=== PATIENT | male | born 1980 | race Caucasian/White ===

== ENCOUNTER 2019-02-14 16:41 | Emergency (ER) | payer OTHER ==
[~2019-02-14] VITALS: Ht 180.3 cm; Wt 99.8 kg
[~2019-02-14 16:41] MED LIST: BACTRIM DS TAB1 EACH PO; DICLOFENAC SODI75 MG PO; PERCOCET 7.5-31 EACH PO; VALACYCLOVIR500 MG PO; ZOFRAN4 MG PO
[2019-02-14] MEDS ORDERED: DOXYCYCLINE HY100 MG PO (17:39)
[2019-02-15] MEDS ORDERED: ONDANSETRON ODT8 MG PO (12:08)
== END 2019-02-14 18:11 | disposition home or self-care (01) ==
LOC: ED 16:41
PROC: 0H9HXZZ Drainage of Right Upper Leg Skin, External Approach (ICD-10-PCS; principal; 2019-02-14)
DX: L02.415 Cutaneous abscess of right lower limb (principal); B95.8 Unspecified staphylococcus as the cause of diseases classified elsewhere; F17.200 Nicotine dependence, unspecified, uncomplicated; Z88.5 Allergy status to narcotic agent; Z88.6 Allergy status to analgesic agent; Z91.018 Allergy to other foods; Z79.899 Other long term (current) drug therapy
CPT/HCPCS: 10060; 99282-25

== ENCOUNTER 2019-02-15 09:46 | Emergency (ER) | payer OTHER ==
[~2019-02-15] VITALS: Ht 180.3 cm; Wt 99.8 kg
[~2019-02-15 09:46] MED LIST changes: +DOXYCYCLINE HY100 MG PO
--- OUTSIDE RECORDS SUMMARY | 2019-02-15 09:48 | XMS ---
PreManage Notification: JULIETA JAEGER Security Engineering Writer Events No recent Security Events currently on file CRITERIA MET - [facility] - 2 Visits in 30 Days CARE PROVIDERS Jose C [place]/Center: Federally Qualified 12/27/2017-Current [facility] ([facility]) CENTER OF PHONE: [phone] LUZ MARIA STONER Nurse Practitioner Current PHONE: Unknown Teofilo Guerra Solar Installation Supervisor/Road Freight Conductor Current [facility] Regional Care Team PHONE: [phone] [facility] Primary Care 12/27/2017-10/01/2015 [facility] PHONE: [phone] DEJA DASILVA Primary Care Current PHONE: Unknown SONALI CONDON Primary Care Current PHONE: Unknown [facility] Primary [facility] 10/02/2015-[facility] INTERNAL [facility] PHONE: [phone] [facility] Primary Care 05/10/2016-[facility] PHONE: [phone] Tess has no Care Guidelines for this patient. ESvitlana VISIT COUNT (12 MO.) [address] [place] [address] SHANNON Jackson TOTAL 3 NOTE: Visits indicate total known visits. ED/UCC VISIT TRACKING (12 MO.) 02/15/2019 09:47 [place] TYPE: Emergency COMPLAINT: - ABD PAIN, BOWEL PROBLEMS 02/14/2019 16:[address] [facility] [address] [facility] [place] TYPE: Emergency COMPLAINT: - SKIN ISSUES 07/14/2018 17:06 [facility] [place] TYPE: Emergency COMPLAINT: - swollen testicles back pain INPATIENT VISIT TRACKING (12 MO.) No inpatient visits to display in this time frame [id number]
[2019-02-15] MEDS ORDERED: ONDANSETRON ODT8 MG PO (12:08)
== END 2019-02-15 12:57 | disposition home or self-care (01) ==
LOC: ED 09:46
DX: K52.9 Noninfective gastroenteritis and colitis, unspecified (principal); F17.200 Nicotine dependence, unspecified, uncomplicated; Z88.5 Allergy status to narcotic agent; Z88.6 Allergy status to analgesic agent; Z91.018 Allergy to other foods
CPT/HCPCS: 80053; 81001; 85025; 96361; 96374; 99284-25; J2405; J7030

== ENCOUNTER 2019-02-16 06:01 | Emergency (ER) | payer OTHER ==
[~2019-02-16] VITALS: Ht 180.3 cm; Wt 99.8 kg
[~2019-02-16 06:01] MED LIST changes: +ONDANSETRON ODT8 MG PO
--- OUTSIDE RECORDS SUMMARY | 2019-02-16 06:04 | XMS ---
PreManage Notification: JULIETA JAEGER Security Behavioral Instructor Events No recent Security Events currently on file CRITERIA MET - [facility] - 2 Visits in 30 Days CARE PROVIDERS Jose C [place]/Center: Federally Qualified 12/27/2017-Current [facility] CENTER OF PHONE: [phone] LUZ MARIA STONER Nurse Practitioner Current PHONE: Unknown Teofilo Guerar Boat Outboard Engine Mechanic/Corporate Travel Counselor Current [facility] Regional Care Team PHONE: [phone] [facility] Primary Care 12/27/2017-10/01/2015 [facility] PHONE: [phone] DEJA DASILVA Primary Care Current PHONE: Unknown SONLAI CONDON Primary Care Current PHONE: Unknown [facility] Primary [facility] 10/02/2015-[facility] INTERNAL [facility] PHONE: [phone] [facility] Primary Care 05/10/2016- PHONE: [phone] Tess has no Care Guidelines for this patient. ESvitlana VISIT COUNT ([address] MO[address] [place] [address] 3 SHANNON Jackson TOTAL 4 NOTE: Visits indicate total known visits. ED/UCC VISIT TRACKING (12 MO.) 02/16/2019 06:01 [facility] [place] TYPE: Emergency COMPLAINT: - ABD PAIN 02/15/2019 09:47 [facility] [place] TYPE: Emergency COMPLAINT: - ABD PAIN, BOWEL PROBLEMS 02/14/2019 16:42 [facility] [place] TYPE: Emergency COMPLAINT: - SKIN [facility]UES [facility]14[facility]2018 [facility] [place] [facility] COMPLAINT: - swollen testicles back pain INPATIENT VISIT TRACKING (12 MO.) No inpatient visits to display in this time frame [id number]
== END 2019-02-16 10:25 | disposition home or self-care (01) ==
LOC: ED 06:01
DX: K52.9 Noninfective gastroenteritis and colitis, unspecified (principal); F17.200 Nicotine dependence, unspecified, uncomplicated; Z88.5 Allergy status to narcotic agent; Z88.6 Allergy status to analgesic agent; Z91.018 Allergy to other foods
CPT/HCPCS: 80053; 83690; 85025; 96361; 96374; 96375; 99284-25; J2405; J2550; J7030

== ENCOUNTER 2019-04-01 21:55 | Emergency (ER) | payer MEDICAID ==
[~2019-04-01] VITALS: Ht 180.3 cm; Wt 99.8 kg
--- OUTSIDE RECORDS SUMMARY | ~2019-04-01 | XMS | Encounter Summary ---
Demographics + + + | Address | [address] | | | [place] [address] | + + + | Home Phone | | + + + | Preferred Language | Unknown | + + + | Marital Status | Unmarried Domestic Partner | + + + | Protestant Affiliation | Unknown | + + + | Race | White | + + + | Ethnic Group | Not or | + + + Author + + + | Author | [facility] | + + + | Organization | [facility] | + + + | Address | Unknown | + + + | Phone | Unavailable | + + + Support + + + + + | Name | Relationship | Address | Phone | + + + + + | Ly Garza | ECON | [address] | | | | | [place] | | | | | [place], [place] | | | | | [address] | | + + + + + Care Team Providers + +------+ + | Care Network Cable Installer Name | Role | Phone | + +------+ + | Heather NicholsP | PCP | | + +------+ + Encounter Details +--------+ + + + + | Date | Type | Department | Care Team | Description | +--------+ + + + + | 02/15/ | Hospital | Radiology/Imaging | Rupesh Cortes, | | | 2018 | Encounter | Lab at [facility] [address] | [address] | | | | | Teresa Kait Mailcode: | [place], [place] | | | | | [facility] | [address] | | | | | Health and Healing, | [phone] | | | | | [place] [address] [facility] | | | | | | Floor [facility] [place] | | | | | | [address] | | | | | | [phone] | | | +--------+ + + + + Social History + +-------+ +--------+------+ | Tobacco Use | Types | Packs/Day | Years | Date | | | | | Used | | + +-------+ +--------+------+ | Current Every Day | | 1 | 4 | | | Smoker | | | | | + +-------+ +--------+------+ + +---+---+---+ | Smokeless Tobacco: | | | | | Never Used | | | | + +---+---+---+ + + +---------+ + | Alcohol Use | Drinks/Week | oz/Week | Comments | + + +---------+ + | No | | | | + + +---------+ + + + + | Sex Assigned at | Date Recorded | | | | + + + | Not on file | | + + + + + + + | Job Start Date | Occupation | Industry | + + + + | Not on file | Not on file | Not on file | + + + + + + + + | Travel History | Travel Start | Travel End | + + + + + + | No recent travel history available. | + + documented as of this encounter Medications at Time of Discharge + + + +---------+--------+ + | Medication | Sig | Dispensed | Refills | Start | End Date | | | | | | Date | | + + + +---------+--------+ + | valacyclovir HCl | Take by mouth once | | 0 | | | | (VALACYCLOVIR ORAL) | daily. | | | | | + + + +---------+--------+ + documented as of this encounter Plan of Treatment Not on filedocumented as of this encounter Procedures + +--------+ + + + | Procedure Name | Priori | Date/Time | Associated Diagnosis | Comments | | | ty | | | | + +--------+ + + + | X-RAY SPINE CERVICAL | Routin | 02/15/2018 | Carpal tunnel | Results for this | | 2 VIEWS | e | 2:32 PM | syndrome of left | procedure are in the | | FLEXION/EXTENSION | | PDT | wrist Neck pain | results section. | | | | | Myofascial pain | | | | | | Facet arthropathy | | + +--------+ + + + documented in this encounter Results X-RAY SPINE CERVICAL 2 VIEWS FLEXION/EXTENSION (02/15/2018 2:32 PM PDT) + + | Specimen | + + | | + + + + + | Narrative | Performed At | + + + | EXAM: SPINE CERVICAL 2 VWS FLEX/EXT HISTORY: eval for motion | [facility] | | COMPARISON: 01/09/2018 FINDINGS: The cervical vertebral bodies | RADIOLOGY VOICE | | are normal in height and alignment on flexion and extension views. | RECOGNITION 2 | | Moderate C5-7 and mild C3-5 disc space narrowing and mild multilevel | | | endplate spurring are unchanged. The craniocervical and C1-2 | | | relationships are intact. There is no soft tissue abnormality. | | | IMPRESSION: Unchanged moderate C5-7 and mild C3-5 disc | | | degeneration. No dynamic instability. I have personally reviewed | | | the images and, if necessary, edited the report. I agree with the | | | report as now presented. Final signature: Ndaine Wynne MD | | | 02/15/2018 3:14 PM Preliminary: Nadine Wynne MD | | | Dictation initiated: Nadine Wynne MD 02/15/2018 2:47 PM | | + + + + + | Procedure Note | + + | Service Account, Radiant Res In Interface - 02/15/2018 3:16 PM PDT EXAM: SPINE | | CERVICAL 2 VWS FLEX/EXT HISTORY: eval for motion COMPARISON: 01/09/2018 FINDINGS: The | | cervical vertebral bodies are normal in height and alignment on flexion and extension | | views. Moderate C5-7 and mild C3-5 disc space narrowing and mild multilevel endplate | | spurring are unchanged. The craniocervical and C1-2 relationships are intact. There is | | no soft tissue abnormality. IMPRESSION: Unchanged moderate C5-7 and mild C3-5 disc | | degeneration. No dynamic instability. I have personally reviewed the images and, if | | necessary, edited the report. I agree with the report as now presented. Final | | signature: Nadine Wynne MD 02/15/2018 3:14 PM Preliminary: Nadine Wynne MD | | Dictation initiated: Nadine Wynne MD 02/15/2018 2:47 PM | | | |IMPRESSION: | | | |Unchanged moderate C5-7 and mild C3-5 disc degeneration. No dynamic instability. | | | |I have personally reviewed the images and, if necessary, edited the report. I agree with th e report as now presented. | | | |Final signature: Nadine Wynne MD 02/15/2018 3:14 PM | |Preliminary: Nadine Wynne MD | |Dictation initiated: Nadine Wynne MD 02/15/2018 2:47 PM | + + + +---------+ + + | Performing | Address | City/State/Zipcode | Phone Number | | Organization | | | | + +---------+ + + | [facility] | | | | | VOICE RECOGNITION 2 | | | | + +---------+ + + documented in this encounter Visit Diagnoses + + | Diagnosis | + + | Carpal tunnel syndrome of left wrist Carpal tunnel syndrome | + + | Neck pain Cervicalgia | + + | Myofascial pain Mylagia and myositis, unspecified | + + | Facet arthropathy Spondylosis of unspecified site without mention of myelopathy | + + documented in this encounter"
--- OUTSIDE RECORDS SUMMARY | ~2019-04-01 | XMS | Clinical Summary ---
Demographics + + + | Address | [address] | | | [place] [address] | + + + | Home Phone | | + + + | Preferred Language | Unknown | + + + | Marital Status | Unmarried Domestic Partner | + + + | Scientologist Affiliation | Unknown | + + + | Race | White | + + + | Ethnic Group | Not or | + + + Author + + + | Author | [facility] | + + + | Organization | [facility] | + + + | Address | Unknown | + + + | Phone | Unavailable | + + + Support + + + + + | Name | Relationship | Address | Phone | + + + + + | Ly Garza | ECON | [address] | | | | | [address] | | | | | [place], [place] | | | | | [address] | | + + + + + Care Team Providers + +------+ + | Care Plug Grower Name | Role | Phone | + +------+ + | Heather Nichols LINOLEUM LAYER HELPER | PCP | | + +------+ + Source Comments GEORGIE is fully live on both EpicCare Ambulatory and EpicCare InPatient.[facility] & [facility] Allergies + + + + + + | Active Allergy | Reactions | Severity | Noted | Comments | | | | | Date | | + + + + + + | Codeine | Palpitations | | 10/09/19 | | | | | | 16 | | + + + + + + | Ibuprofen | Edema | High | 12/14/19 | | | | | | 17 | | + + + + + + | Wheat Containing | Diarrhea | Low | 10/27/19 | | | Prod | | | 16 | | + + + + + + Medications + + + +---------+------+------+-------+ | Medication | Sig | Dispensed | Refills | Star | End | Statu | | | | | | t | Date | s | | | | | | Date | | | + + + +---------+------+------+-------+ | valacyclovir HCl | Take by mouth once | | 0 | | | Activ | | (VALACYCLOVIR ORAL) | daily. | | | | | e | + + + +---------+------+------+-------+ Active Problems Not on file Social History + +-------+ +--------+------+ | Tobacco [...] recent travel history available. | + + Last Filed Vital Signs + + + + + | Vital Sign | Reading | Time Taken | Comments | + + + + + | Blood Pressure | 140/73 | 02/15/2018 1:36 PM | | | | | PDT | | + + + + + | Pulse | 97 | 02/15/2018 1:36 PM | | | | | PDT | | + + + + + | Temperature | - | - | | + + + + + | Respiratory Rate | - | - | | + + + + + | Oxygen Saturation | - | - | | + + + + + | Inhaled Oxygen | - | - | | | Concentration | | | | + + + + + | Weight | 98 kg (216 lb) | 02/15/2018 1:36 PM | | | | | PDT | | + + + + + | Height | 180.3 cm (5' 11") | 02/15/2018 1:36 PM | | | | | PDT | | + + + + + | Body Mass Index | 30.13 | 02/15/2018 1:36 PM | | | | | PDT | | + + + + + Plan of Treatment + + + + + | Health Maintenance | Due Date | Last Done | Comments | + + + + + | Pneumococcal | | | | | vaccination (1 of 1 | 6 | | | | - PPSV23) | | | | + + + + + | Influenza (Flu) | | 02/13/2017 | | | vaccination (#1) | 9 | | | + + + + + Results Not on filefrom Last 3 Months Insurance + +--------+ +--------+-------+---------+--------+ | Payer | Benefi | Subscriber | Effect | Phone | Address | Type | | | t Plan | ID | chente | | | | | | / | | Dates | | | | | | Group | | | | | | + +--------+ +--------+-------+---------+--------+ | FINISH PATCHER MEDICAID | FINISH PATCHER | xxxxxxxx | 01/01/20 | | | Medica | | | [place] | | 17-Pre | | | id | | | [place] | | sent | | | | | | PACIFI | | | | | | | | C | | | | | | + +--------+ +--------+-------+---------+--------+ + +--------+ +--------+ + + | Guarantor Name | Accoun | Relation to | Date | Phone | Billing Address | | | t Type | Patient | of | | | | | | | | | | + +--------+ +--------+ + + | Nelson Banks | Person | Self [birth year] | [id number] | | | al/Fam | | 1981 | [phone] | | | [address] | | | [address] (Home) | [place] [address] | + +--------+ +--------+ + +
--- OUTSIDE RECORDS SUMMARY | ~2019-04-01 | XMS | Clinical Summary ---
Demographics + + + | Address | [address] | | | [place] [address] | + + + | Home Phone | | + + + | Preferred Language | Unknown | + + + | Marital Status | Unmarried Domestic Partner | + + + | Christianity Affiliation | Unknown | + + + [...] + | Ly Garza | ECON | [id number] | | | | | [place] | | | | | [place], [place] | | | | | [address] | | + + + + + Care Team Providers + +------+ + | Care Hob Mill Operator Name | Role | Phone | + +------+ + | Heather Nichols PLYWOOD STOCK GRADER | PCP | | + +------+ + Source Comments GEORGIE is fully live on both EpicCare Ambulatory and EpicCare InPatient.[facility] Allergies + + + + + [...] | | | + +--------+ +--------+-------+---------+--------+ | GRADE RECORDER MEDICAID | GRADE RECORDER | xxxxxxxx | 01/01/20 | | | [...] Person | Self | [birth year] | [address] | | | al/Fam | | 1981 | [phone] | [address] | | | [address] | | | [address] (Home) | [place] [address] | + +--------+ +--------+ + +
--- OUTSIDE RECORDS SUMMARY | ~2019-04-01 | XMS | Encounter Summary ---
Demographics + + + | Address | [address] | | | [place] [address] | + + + | Home Phone | | + + + | Preferred Language | Unknown | + + + | Marital Status | Unmarried Domestic Partner | + + + | Spiritism Affiliation | Unknown | + + + | Race | White | + + + | Ethnic Group | Not or | + + + Author + + + | Author | [facility] | + + + | Organization | [facility] | + + + | Address | Unknown | + + + | Phone | Unavailable | + + + Support + + + + + | Name | Relationship | Address | Phone | + + + + + | Ly Garza | ECON | [address] | | | | | [place] | | | | | [place], [place] | | | | | [address] | | + + + + + Care Team Providers + +------+ + | Care Vehicle Dismantler Name | Role | Phone | + +------+ + | Heather NicholsP | PCP | | + +------+ + Encounter Details +--------+ + + + + | Date | Type | Department | Care Team | Description | +--------+ + + + + | 02/15/ | Hospital | Radiology/Imaging | Rupesh Cortes, | | | 2018 | Encounter | Lab at [facility] [address] | [address] | | | | | Teresa Kait Mailcode: | [place], [place] | | | | | [address] [facility] | [address] | | | | | Health and Healing, | [phone] | | | | | [place] [address] [address] | | | | | | Floor [facility] [place] | | | | | | [address] | | | | | | [phone] | | | +--------+ + + + [...] | report as now presented. Final signature: Nadine Wynne MD | | | 02/15/2018 3:14 [...]
--- OUTSIDE RECORDS SUMMARY | ~2019-04-01 | XMS | Encounter Summary ---
Demographics + + + | Address | [address] | | | [place] [address] | + + + | Home Phone | | + + + | Preferred Language | Unknown | + + + | Marital Status | Unmarried Domestic Partner | + + + | Mandaeism Affiliation | Unknown | + + + | Race | White | + + + | Ethnic Group | Not or | + + + Author + + + | Author | [facility] | + + + | Organization | [facility] | + + + | Address | Unknown | + + + | Phone | Unavailable | + + + Support + + + + + | Name | Relationship | Address | Phone | + + + + + | Ly Garza | ECON | [address] | | | | | [place] | | | | | [place], [place] | | | | | [address] | | + + + + + Care Team Providers + +------+ + | Care Turf Manager Name | Role | Phone | + +------+ + | Heather NicholsP | PCP | | + +------+ + Reason for Referral Consultation (Routine) +--------+--------+ + + + + | Status | Reason | Specialty | Diagnoses / | Referred By | Referred To | | | | | Procedures | Contact | Contact | +--------+--------+ + + + + | Closed | | Orthopedics | Diagnoses | Sophia, | Gris | | | | | Tricia | Rupesh Lennon, | Chauncey, MD | | | | | tunnel | PA-C [address] | [address] | | | | | syndrome of | [address] | Trevin Fajardo | | | | | left wrist | [place], | [address] [place], | | | | | Neck pain | [place] | [place] | | | | | Myofascial | [address] | [address] | | | | | pain Facet | Phone: | Phone: | | | | | arthropathy | [phone] | [phone] | | | | | Procedures | Fax: | Fax: | | | | | EMG/NERVE | [phone] | [phone] | | | | | CONDUCTION | | | | | | | STUDIES - | | | | | | | ORTHO | | | +--------+--------+ + + + + Physical Therapy (Routine) + +--------+ + + + + | Status | Reason | Specialty | Diagnoses / | Referred By | Referred To | | | | | Procedures | Contact | Contact | + +--------+ + + + + | Authorized | | Physical | Diagnoses | Sophia, | | | | | Therapy | Carpal | Rupesh Lennon, | | | | | | tunnel | PA-C [address] | | | | | | syndrome of | [address] | | | | | | left wrist | [place], | | | | | | Neck pain | [place] | | | | | | Myofascial | [address] | | | | | | pain Facet | Phone: | | | | | | arthropathy | [phone] | | | | | | Procedures | Fax: | | | | | | PHYSICAL | [phone] | | | | | | THERAPY | | | | | | | REFERRAL | | | + +--------+ + + + + Reason for Visit + + + | Reason | Comments | + + + | New Patient Visit | | + + + Intake Referral (Routine) +--------+--------+ + + + + | Status | Reason | Specialty | Diagnoses / | Referred By | Referred To | | | | | Procedures | Contact | Contact | +--------+--------+ + + + + | Closed | | Spine | Diagnoses | Simone, | Sophia, | | | | | Other | KATHLEEN Molina | Rupesh Lennon PA-C | | | | | cervical | [address] | | | | | disc | [address] | | | | | degeneration | [address] | [place] | | | | | , | [place], [place] | [address] | | | | | unspecified | [address] | Phone: | | | | | cervical | Phone: | [phone] | | | | | region | [phone] | Fax: | | | | | Other | Fax: | [phone] | | | | | cervical | [phone] | | | | | | disc | | | | | | | displacement | | | | | | | , | | | | | | | unspecified | | | | | | | cervical | | | | | | | region | | | | | | | Osteophyte, | | | | | | | vertebrae | | | +--------+--------+ + + + + Encounter Details +--------+---------+ + + + | Date | Type | Department | Care Team | Description | +--------+---------+ + + + | 02/15/ | Office | Spine Center at | Rupesh Cortes, | Carpal tunnel | | 2018 | Visit | [facility] [address] | PA-C [address] | syndrome of left | | | | Ave Mailcode: | Ave [facility] [place] | wrist (Primary Dx); | | | | [place] for [facility] | [address] | Neck pain; | | | | and Healing, | [phone] | Myofascial pain; | | | | [facility] 1 | | Facet arthropathy | | | | [place], [place] | | | | | | [address] | | | | | | [phone] | | | +--------+---------+ + + + Social History + +-------+ [...] + + documented as of this encounter Last Filed Vital Signs + + + [...] | | + + + + + documented in this encounter Progress Notes Rupesh Cortes PA-C - 02/15/2018 1:50 PM PDTFormatting of this note might be different fr om the original. NEUROLOGICAL SURGERY SPINE CLINIC - HISTORY & PHYSICAL Chief Complaint: Neck pain and worsening left hand numbness History of Present Illness: Mr. Banks is a 37 year old male with a history of left shoulder surgery and right carpal tunnel release in 2016 with chronic neck pain x 5-10 years. Neck pain is left sided constan t (points to left superior periscapular region) 8/10. Pain and stiffness worst in morning an d with cervical extension and rotation to left. Radiating pain down left arm across shoulder to forearm pain. Pain is rated 90% neck and 10% arm. 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 He had some relief from conservative carpal tunnel treatments including bracing in the past, but not recently The patient has tried: -Physical Therapy: last in 2017 without relief -NSAIDs: edema -Tylenol without relief -Narcotics: "dilaudid is the only thing that works but it makes me tired" -Muscle relaxants without relief -Gabapentin: With minimal relief in past -Recently tried Wellbutrin and citalopram which "made me out there" The patient has not tried: -Acupuncture: "not going to happen" -Epidural steroid injections or medial branch blocks, not covered by [facility] Review of Systems: All other systems were reviewed by me personally on a complete review of systems questionna mandy that will be scanned into EPIC. Current medication list: Current Outpatient Prescriptions Medication Sig valacyclovir HCl (VALACYCLOVIR ORAL) Take by mouth once daily. No current facility-administered medications for this visit. Allergies: Allergies Allergen Reactions Ibuprofen Edema Codeine Palpitations Wheat Containing Prod Diarrhea Past surgical history: Past Surgical History Procedure Laterality Date Left shoulder surgery 2016 Carpal tunnel release Right 2016 Inguinal hernia repair Pilonidal cyst excision 2016 Past medical history: Past Medical History: Diagnosis Date Asthma Herpes simplex Social History: History Smoking Status Current Every Day Smoker Packs/day: 1.00 Years: 4.00 Smokeless Tobacco Never Used History Alcohol Use No Family History: I asked and the patient's family history is non-contributory for presenting complaint and findings. Physical Exam: Vital Signs: BP 140/73 | Pulse 97 | Ht 1.803 m (5' 11") | Wt 98 kg (216 lb) | BMI 30.13 kg/ (m^2) General Appearance: No acute distress, well-groomed Orientation: Alert and oriented x 3 Eyes: anicteric sclerae, moist conjunctivae HENT: Normocephalic, Atraumatic Neck: Trachea midline; no visible thyromegaly Lungs: CTA, with normal respiratory effort CV: RRR, no audible MRGs Skin: Normal temperature, no visible rashes Psych: Appropriate and cooperative Musculoskeletal: MOTOR SCORE LEFT RIGHT C5 (Shoulder Abduct) 5 5 C6 (Elbow Flex) 5 5 C7 (Elbow Ext) 5 5 C8 (Wrist Ext) 5 5 T1 (Pinky Abd) 5 5 L2 (Hip Flex) 5 5 L3 (Knee Ext) 5 5 L4 (Dorsiflexion) 5 5 L5 (EHL) 5 5 S1 (Plantar Flex) 5 5 Gait: Normal. No ataxia with heel to toe Tone: Normal tone in upper and lower extremities. No rigidity, atrophy, or abnormal moveme nts. Able to stand on heels and toes bilaterally Neurological: Sensation grossly intact to light touch throughout and to pinpoint sensation throughout TENDON REFLEXES LEFT RIGHT C5-6 (Biceps) 1+ 1+ C6 (Brachioradialis) 1+ 1+ C7-8 (Triceps) 1+ 1+ L3-4 (Knee jerk) S1-2 (Achilles) PATHOLOGIC REFLEXES LEFT RIGHT Leal neg neg Babinkski neg neg Clonus neg neg Negative spurlings on left Positive Durkan's compression test of left wrist Imaging: Cervical MRI in [facility], full report under referral tab from 01/10/18: "C5-6:...No central canal stenosis. Moderate right, mild left foraminal stenosis C6-7:...No central canal stenosis. Moderate left, mild right foraminal stenosis" Assessment: Mr. Banks is a 37 year old male with chronic neck pain that is likely multifactorial includ ing facetogenic and myofascial pain. He has LUE numbness most consistent with carpal tunnel but C7 radiculopathy is on the differential Plan: -Dynamic cervical xrays -EMG/NCS of LUE to evaluate for carpal tunnel and radiculopathy -Counseled on necessity of nicotine cessation, which limits spinal surgical intervention fr om [facility] perspective -Counseled on multifactorial nature of axial spine pain, which is not a good surgical indic ation -Referral to Physical Therapy -Continue management of pain medication by PCP, agree with avoiding chronic dilaudid use -Follow up when EMG/NCS complete to evaluate results and progress I spent at least 40 minutes [id number] with the patient. I spent more than 50% of this vi sit in coordination of care and counseling in which we discussed diagnosis, treatment, imagi ng studies and follow-up. Rupesh Cortes PA-C [facility] AT [address] [address] [facility] OPEN NOTE [[id number]] documented in this e ncounter Plan of Treatment + + +--------+ + + | Name | Type | Priori | Associated Diagnoses | Order Schedule | | | | ty | | | + + +--------+ + + | EMG/NERVE CONDUCTION | Procedures | Routin | Carpal tunnel | Expected: 02/15/2018 | | STUDIES - ORTHO | | e | syndrome of left | (Approximate), | | | | | wrist Neck pain | Expires: 03/18/2019 | | | | | Myofascial pain | | | | | | Facet arthropathy | | + + +--------+ + + documented as of this encounter Results X-RAY SPINE CERVICAL 2 [...] | Carpal tunnel syndrome of left wrist - Primary Carpal tunnel syndrome | + + | Neck pain Cervicalgia | + + | Myofascial pain Mylagia and myositis, unspecified | + + | Facet arthropathy Spondylosis of unspecified site without mention of myelopathy | + + documented in this encounter
--- OUTSIDE RECORDS SUMMARY | ~2019-04-01 | XMS | Encounter Summary ---
Demographics + + + | Address | [address] [address] | | | [place] [address] | + + + | Home Phone | | + + + | Preferred Language | Unknown | + + + | Marital Status | Unmarried Domestic Partner | + + + | Mosque Affiliation | Unknown | + + + | Race | White | + + + | Ethnic Group | Not or | + + + Author + + + | Author | [facility] | + + + | Organization | [facility] | + + + | Address | Unknown | + + + | Phone | Unavailable | + + + Support + + + + + | Name | Relationship | Address | Phone | + + + + + | Ly Garza | ECON | [address] | | | | | [address] | | | | | [place], [place] | | | | | [address] | | + + + + + Care Team Providers + +------+ + | Care Receiver Dispatcher Name | Role | Phone | + [...] | left wrist | [address], | [address] [place], | | | | | Neck pain | [place] | [place] | | | | | Myofascial | [address] | [address] | | | | | pain Facet | Phone: | Phone: | | | | | arthropathy | [phone] | [phone] | | | | | Procedures | Fax: | Fax: | | | | | EMG/NERVE | [phone] | [phone] | | | | | CONDUCTION | [...] | | | | | Myofascial | [address] | | | | | | pain Facet | Phone: | | | | | | arthropathy | [phone] | | | | | | Procedures | Fax: | | | | | | PHYSICAL | [phone] | | | | | | THERAPY [...] | | degeneration | [address] | [facility] [place] [place] [place] | | | | | , | [place], [place] | [address] | | | | | unspecified | [address] | Phone: | | | | | cervical | Phone: | [phone] | | | | | region | [phone] | Fax: | | | | | Other | Fax: | [phone] | | | | | cervical | [phone] | | | | | | disc [...] tunnel | | 2018 | Visit | [facility] [address] | PA-C [address] | syndrome of left | | | | Ave Mailcode: | Ave [facility] [place] | wrist (Primary Dx); | | | | [place] [facility] | [address] | Neck pain; | | | | and Healing, | [phone] | Myofascial pain; | | | | [facility] 1 | | Facet arthropathy | | | | [place], [place] | | | | | | [address] | | | | | | [phone] | | | +--------+---------+ + + + [...] driving 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 Left lab rn weakness is chronic and worsening. He had [...] progress I spent at least 40 minutes [id number] with the patient. I spent more than 50% of this vi sit in coordination of care and counseling in which we discussed diagnosis, treatment, imagi ng studies and follow-up. Rupesh Cortes PA-C SPINE [facility] AT [address] [address] [facility] OPEN NOTE [[id number]] documented in this e ncounter Plan of [...]
[2019-04-01] MEDS ORDERED: ACYCLOVIR400 MG PO (22:54)
[2019-04-01] MEDS ORDERED: VALACYCLOVIR500 MG PO (22:55)
== END 2019-04-01 23:55 | disposition home or self-care (01) ==
LOC: ED 21:55
DX: R05 Cough (principal); F17.200 Nicotine dependence, unspecified, uncomplicated; F03.90 Unspecified dementia, unspecified severity, without behavioral disturbance, psychotic disturbance, mood disturbance, and anxiety; Z88.5 Allergy status to narcotic agent; Z88.8 Allergy status to other drugs, medicaments and biological substances; Z91.018 Allergy to other foods; Z79.899 Other long term (current) drug therapy
CPT/HCPCS: 71046; 99283-25

== ENCOUNTER 2021-10-04 12:42 | Emergency (ER) | payer OTHER ==
[~2021-10-04] VITALS: Ht 180.3 cm; Wt 108.7 kg
[~2021-10-04 12:42] MED LIST changes: +ACYCLOVIR400 MG PO
[2021-10-04] MEDS ORDERED: SILDENAFIL CITR50 MG PO (12:58)
--- OUTSIDE RECORDS SUMMARY | 2021-10-04 14:13 | XMS ---
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 E.Saji. VISIT COUNT (12 MO.) [address] TOTAL 2 NOTE: Visits indicate total known visits. ED/UCC VISIT TRACKING (12 MO.) 10/04/2021 12:[address] [facility] [place] TYPE: Emergency COMPLAINT: - ABD PAIN, UNABLE TO EAT, DIZZINESS 10/02/2021 21:48 [facility] TYPE: Emergency DIAGNOSES: - Orthostatic hypotension - Diarrhea - Loss of Consciousness - MEDIC - Syncope and collapse - Diarrhea, unspecified INPATIENT VISIT TRACKING (12 MO.) No inpatient visits to display in this time frame [email or web address]
[2021-10-04] MEDS ORDERED: AMOX TR-K CLV1 EAC1 PO (19:52)
[2021-10-04] MEDS ORDERED: HYDROCODON-ACE1 EA10 PO (19:53)
== END 2021-10-04 20:51 | disposition home or self-care (01) ==
LOC: ED 12:42
DX: K57.92 Diverticulitis of intestine, part unspecified, without perforation or abscess without bleeding (principal); R10.13 Epigastric pain; Z87.891 Personal history of nicotine dependence; Z88.5 Allergy status to narcotic agent; Z88.6 Allergy status to analgesic agent; Z91.048 Other nonmedicinal substance allergy status
CPT/HCPCS: 36415; 74177; 76705; 80053; 81001; 83690; 83735; 85025; A9270; J2405